=== PATIENT | male | born 1955 ===

== ENCOUNTER 2017-02-16 09:24 | Day surgery (SDC) | payer OTHER ==
[2016-12-03 09:33] VITALS: BMI 33.7
[2017-02-16] MEDS ORDERED: Lactated Ringer's 500 ML IV ONE (09:48)
[2017-02-16] MEDS ORDERED: Propofol 10 mg/ml Inj (20 ML) ONE (12:32)
[2017-02-17 16:00] VITALS: RESP 16; TEMP 97
[2017-02-17 16:01] VITALS: BP 124/75; PULSE 60; O2SAT 99
== END 2017-02-16 13:59 | disposition home or self-care (01) ==
LOC: H.ENDO 09:24
PROVIDERS: ATTEND Internal Medicine Gastroenterology
DX: K62.1 Rectal polyp (principal); K64.8 Other hemorrhoids; I10 Essential (primary) hypertension; M17.0 Bilateral primary osteoarthritis of knee; E66.9 Obesity, unspecified; I25.10 Atherosclerotic heart disease of native coronary artery without angina pectoris; Z95.5 Presence of coronary angioplasty implant and graft